=== PATIENT | female | born 1975 | race Caucasian/White ===

== ENCOUNTER 2017-08-24 13:19 | Emergency (ER) | payer BC ==
[2017-08-24 13:43] LABS: ABSOLUTE BASOPHILS # (AUTO) 0.1 10^3/uL (0.0-0.2); ABSOLUTE EOSINOPHILS # (AUTO) 0.1 10^3/uL (0.0-0.6); ABSOLUTE LYMPHOCYTES (AUTO) 2.3 10^3/uL (0.5-4.7); ABSOLUTE MONOCYTES (AUTO) 0.8 10^3/uL (0.1-1.4); ABSOLUTE NEUT (AUTO) 6.8 10^3/uL (1.7-8.2); BASOPHILS % (AUTO) 0.6 % (0-2); EOSINOPHILS % (AUTO) 0.9 % (0-6); HEMOGLOBIN 14.1 g/dL (12.0-15.5); MEAN CORPUSCULAR HEMOGLOBIN 30.6 pg (27.0-33.4); MEAN CORPUSCULAR HGB CONC 34.3 g/dL (32.0-36.0); MEAN CORPUSCULAR VOLUME 89 fl (80-97); MONOCYTES % (AUTO) 7.6 % (3-13); PLATELET COUNT 230 10^3/uL (150-450); RED BLOOD COUNT 4.59 10^6/uL (3.72-5.28); RED CELL DISTRIBUTION WIDTH 12.9 % (11.5-14.0); SEGMENTED NEUTROPHILS % (AUTO) 67.9 % (42-78); TOTAL CELLS COUNTED % (AUTO) 100 %
--- NOTE | 2017-08-24 13:46 | RADIOLOGY REPORT (SQ) ---
EXAM DESCRIPTION: CHEST SINGLE VIEW COMPLETED DATE/TIME: 08/24/2017 1:39 pm REASON FOR STUDY: bed 12 cp COMPARISON: None. EXAM PARAMETERS: NUMBER OF VIEWS: One view. TECHNIQUE: Single frontal radiographic view of the chest acquired. RADIATION DOSE: NA LIMITATIONS: None. FINDINGS: LUNGS AND PLEURA: No opacities, masses or pneumothorax. No pleural effusion. MEDIASTINUM AND HILAR STRUCTURES: No masses. Contour normal. HEART AND VASCULAR STRUCTURES: Heart normal in size. Normal vasculature. BONES: No acute findings. HARDWARE: None in the chest. OTHER: No other significant finding. IMPRESSION: NO ACUTE RADIOGRAPHIC FINDING IN THE CHEST. TECHNICAL DOCUMENTATION: JOB ID: [id number] [employer]- All Rights Reserved Reading location - IP/workstation name: [facility]-[email or web address]
[2017-08-24] MEDS ORDERED: NORMAL SALINE 1000 ML 1,000 ML IV ONE (14:01)
[2017-08-24] MEDS ORDERED: KETOROLAC TROMETHAMINE INJ/PF 30 MG/1 ML SDV IV ONE ×2 (14:08→15:35)
--- NOTE | 2017-08-24 14:10 | ER Document Report ---
ED General - General Mode of Arrival: Medic Information source: Patient TRAVEL OUTSIDE OF THE [place] IN LAST 30 DAYS: No <DEJUAN BAUGH - Last Filed: 08/24/17 14:20> <FABIOLA VERONICA - Last Filed: 08/24/17 17:10> - General Chief Complaint: Chest Pain Stated Complaint: CHEST PAIN Time Seen by Provider: 08/24/17 13:50 Notes: Patient is a 42 year old female presenting to the emergency department complaining of multiple symptoms including chest pain, shortness of breath, numbness on the right side of the jaw and dizziness onset around 1130 today. 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 She states she went inside and began to have chest pressure which she describes as cinder blocks sitting on her chest. While in the EMS patient states her chest pressure radiated into her back between her shoulder blades. Patient also mentions over the last week she has been having indigestion in the middle of the night. She states she has taken Tums but it does not help her symptoms further stating the indigestion goes away on its own. EMS gave the patient 1 Nitro, which the patient states helped alleviate some of her chest pressure. Patient states she has been taking Phentermine for 4 days now and states her indigestion has started before then. (DEJUAN BAUGH) - Related Data Allergies/Adverse Reactions: naproxen [Naproxen] Allergy (Verified 08/14/15 10:42) Rash Penicillins Adverse Reaction (Verified 08/14/15 10:42) yeast infections Past Medical History - General Information source: Patient - Social History Smoking Status: Never Smoker Cigarette use (# per day): No Chew tobacco use (# tins/day): No Smoking Education Provided: No Frequency of alcohol use: None Family History: CAD, Other - [place]- father at 62 y.o. Neurological Medical History: Reports: Hx Migraine Past Surgical History: Reports: Hx Section, Hx Gynecologic Surgery - Ovarian Cysts, Endometrosis, Hx Tubal Ligation - Immunizations Hx Diphtheria, Pertussis, Tetanus Vaccination: Yes <DEJUAN BAUGH - Last Filed: 08/24/17 14:20> Review of Systems - Review of Systems Constitutional: See HPI, Weakness EENT: No symptoms reported Cardiovascular: See HPI, Chest pain, Lightheaded Respiratory: See HPI, Short of breath Gastrointestinal: See HPI Genitourinary: No symptoms reported Female Genitourinary: No symptoms reported Musculoskeletal: See HPI Skin: No symptoms reported Hematologic/Lymphatic: No symptoms reported Neurological/Psychological: No symptoms reported -: Yes All other systems reviewed and negative <DEJUAN BAUGH - Last Filed: 08/24/17 14:20> Physical Exam - General General appearance: Appears well, Alert In distress: None - HEENT Head: Normocephalic, Atraumatic Eyes: Normal Conjunctiva: Normal Extraocular movements intact: Yes Pupils: PERRL Mucous membranes: Normal Neck: Normal - Respiratory Respiratory status: No respiratory distress Chest status: Tender - Reproduicble tenderness to palpation to the anterior chest wall, more so on the left. Also tender to palpation to the sternum. Breath sounds: Normal Chest palpation: Normal - Cardiovascular Rhythm: Regular Heart sounds: Normal auscultation Murmur: No Friction rub: No Gallop: None auscultated - Abdominal Inspection: Normal, Obese Distension: No distension Bowel sounds: Normal Tenderness: Nontender Organomegaly: No organomegaly - Back Back: Tender - tender to palpation to the medial scapula bilatearlly. - Extremities General upper extremity: Normal ROM General lower extremity: Normal ROM - Neurological Neuro grossly intact: Yes Cognition: Normal Orientation: AAOx4 [place] Coma Scale Eye Opening: Spontaneous [place] Coma Scale Verbal: Oriented [place] Coma Scale Motor: Obeys Commands [place] Coma Scale Total: 15 Speech: Normal - Psychological Associated symptoms: Normal affect, Normal mood - Skin Skin Temperature: Warm Skin Moisture: Dry Skin Color: Normal <DEJUAN BAUGH - Last Filed: 08/24/17 14:20> - Vital signs Vitals: Pulse Ox 100 08/24/17 13:22 Course - Laboratory Result Diagrams: 08/24/17 12:35 <DEJUAN BAUGH - Last Filed: 08/24/17 14:20> - Laboratory Result Diagrams: 08/24/17 12:35 08/24/17 12:35 <FABIOLA VEORNICA - Last Filed: 08/24/17 17:10> - Re-evaluation Re-evalutation: 08/24/17 16:46 The patient's EKG is totally normal and was done while she was having pain. Serial troponins are undetectable. She does have reproducible anterior chest and medial scapular muscular pain. She does have mild sunburn to her upper chest and upper half of her back and shoulders. She does have a family history of coronary artery disease, however she does not smoke and does not have hypertension. I do not think she needs to be admitted to the hospital this time, however I am recommending that she follow-up with her primary care provider tomorrow to further investigate her one-week history of waking up at night with indigestion symptoms. (FABIOLA VERONICA) - Vital Signs Vital signs: Temp Pulse Resp BP Pulse Ox 98.5 F 100 08/24/17 13:52 08/24/17 13:22 - Laboratory Laboratory results interpreted by me: 08/24/17 12:35 Carbon Dioxide 21 L Calcium 10.5 H Discharge <DEJUAN BAUGH - Last Filed: 08/24/17 14:20> <FABIOLA VERONICA - Last Filed: 08/24/17 17:10> - Discharge Clinical Impression: Anterior chest wall pain, Sunburn of first degree Muscle strain of scapular region Qualifiers: Encounter type: initial encounter Laterality: unspecified laterality Qualified Code(s): S46.919A - Strain of unspecified muscle, fascia and tendon at shoulder and upper arm level, unspecified arm, initial encounter Chest pain Qualifiers: Chest pain type: unspecified Qualified Code(s): R07.9 - Chest pain, unspecified Fatigue Qualifiers: Fatigue type: unspecified Qualified Code(s): R53.83 - Other fatigue Condition: Stable Disposition: HOME, SELF-CARE Additional Instructions: Chest Wall Pain: Your chest pain has been diagnosed as coming from the chest wall. This is often caused by straining the muscles or joints in the chest during physical activity, direct trauma, coughing, or vigorous vomiting. Persons with arthritis are especially prone to this type of pain, due to inflammation of the cartilage joints near the breast bone. Occasionally, no cause can be found. Rest from strenuous physical activity. This kind of chest pain is usually made worse by movement of the chest. Depending on the symptoms, we may recommend medicine for pain and antiinflammatory effects. If the pain is new, and seems to be due to muscle strain, cold packs can help. Otherwise, apply gentle warmth to the painful area for 15 minutes every hour or two. You should contact the doctor immediately if things change. Further evaluation is needed if you develop a fever or cough, if the nature of the pain changes, or if you become short of breath. The pain in your anterior chest and between her shoulder blades in the back appears to be coming from the muscles. This is most likely due to an overuse or straining of the muscles sometime in the past week or so. Your family history of coronary artery disease does cause some concern, so at this time I would recommend you stop taking the phentermine and follow-up with your primary care provider to discuss getting an exercise stress test done. Try to rest your chest and back muscles as much as possible over the next several days. Drink plenty of fluids to stay well hydrated. Follow-up with your primary care provider tomorrow for recheck. RETURN TO THE EMERGENCY ROOM IF ANY NEW OR WORSENING SYMPTOMS. Scribe Attestation: 08/24/17 14:49 I personally performed the services described in the documentation, reviewed and edited the documentation which was dictated to the scribe in my presence, and it accurately records my words and actions. (FABIOLA VERONICA) Scribe Documentation - Scribe Written by Robbin:: Robbin Sung, 08/24/2017 14:16 acting as scribe for :: [employer] <DEJUAN BAUGH - Last Filed: 08/24/17 14:20>
[2017-08-24 14:13] LABS: CREATINE KINASE MB 0.77 ng/mL (<4.55)
[2017-08-24 14:14] LABS: TROPONIN I < 0.012 ng/mL
[2017-08-24 15:13] LABS: ALANINE AMINOTRANSFERASE 29 U/L (9-52); ALBUMIN 4.4 g/dL (3.5-5.0); ALKALINE PHOSPHATASE 96 U/L (38-126); ANION GAP 17 (5-19); ASPARTATE AMINO TRANSFERASE 21 U/L (14-36); BILIRUBIN,DIRECT 0.3 mg/dL (0.0-0.4); BILIRUBIN,TOTAL 0.5 mg/dL (0.2-1.3); BLOOD UREA NITROGEN 19 mg/dL (7-20); CALCIUM 10.5 mg/dL (8.4-10.2); CARBON DIOXIDE 21 mmol/L (22-30); CHLORIDE 103 mmol/L (98-107); CREATINE KINASE 130 U/L (30-135); GLUCOSE 107 mg/dL (75-110); POTASSIUM 3.8 mmol/L (3.6-5.0); SODIUM 140.8 mmol/L (137-145); TOTAL PROTEIN 7.3 g/dL (6.3-8.2)
[2017-08-24] MEDS ORDERED: FENTANYL CITRATE INJ/PF 100 MCG/2 ML AMPUL IV ONE (15:35)
[2017-08-24] MEDS ORDERED: RINGERS SOLUTION,LACTATED 1,000 ML IV ONE (15:39)
[2017-08-24 17:27] VITALS: BP 120/79
--- NOTE | 2017-08-24 18:27 | EKG REPORT ---
SEVERITY:- NORMAL ECG - SINUS RHYTHM : Confirmed by: Nima Astorga MD 24-Aug-2017 18:26:55
== END 2017-08-24 17:28 | disposition home or self-care (01) ==
LOC: ER 13:19
DX: S46.919A Strain of unspecified muscle, fascia and tendon at shoulder and upper arm level, unspecified arm, initial encounter (principal); R07.89 Other chest pain; L55.0 Sunburn of first degree; R07.9 Chest pain, unspecified; R53.83 Other fatigue; R06.02 Shortness of breath; R20.0 Anesthesia of skin; R42 Dizziness and giddiness; R53.1 Weakness; X58.XXXA Exposure to other specified factors, initial encounter; Z79.899 Other long term (current) drug therapy
CPT/HCPCS: 93005; 99285; 96361; 96374; 36415; 82553; 82550; 85025; 80053; 84484; 71045; 93010; J1885; J7030; J7120

== ENCOUNTER → 2018-08-18 | Outpatient (CLI) | payer BC ==
--- NOTE | 2018-08-18 13:25 | XCELERA REPORT ---
[address] [place] [facility] [place] [address] Lower Extremity Venous Evaluation Procedure: Color flow and duplex imaging of the veins of the left lower extremity as well as the right Common Femoral vein. Right Sided Venous Evaluation The right common femoral vein is fully compressible. Spontaneous and phasic flow is present in the right common femoral vein. Left Sided Venous Evaluation Normal vessel filling wall to wall, compression and augmentation as well as Colour flow down to the infrageniculate veins. Interpretation Summary No duplex evidence of DVT or obstruction in the left lower extremity nor in the right Common Femoral vein. Name: SHWETA BARKERYURI Blackburn Age: 43 yrs Gender: Female : 1975 Patient Status: Outpatient Patient Location: Study Date: 08/18/2018 09:36 AM Reason For Study: LLE SWELLING Ordering Physician: PRESLEY ORELLANA Performed By: Fredi Briggs : PRESLEY ORELLANA > Sam Walker
== END ==
LOC: SP 08:56
PROVIDERS: ATTEND Nurse Practitioner Family
DX: M79.89 Other specified soft tissue disorders (principal)
CPT/HCPCS: 93971

== ENCOUNTER → 2018-08-18 | Outpatient (CLI) | payer BC ==
--- NOTE | 2018-08-18 12:48 | WOMENS IMAGING REPORT ---
EXAM DESCRIPTION: BILAT SCREENING MAMMO W/CAD COMPLETED DATE/TIME: 08/18/2018 10:29 am REASON FOR STUDY: Z12.31 ROUTINE BILATERAL SCREENING Z12.31 ENCNTR SCREEN MAMMOGRAM FOR MALIGNANT N EOPLASM OF LV COMPARISON: None. EXAM PARAMETERS: Standard craniocaudal and mediolateral oblique views of each breast recorded using digital acquisition. Read with the assistance of CAD. .[employer] Version 9.2 LIMITATIONS: None. FINDINGS: No suspicious masses, suspicious calcifications or architectural distortion. No areas of s uspicion. IMPRESSION: ASSESSMENT: Negative MAMMOGRAM. BIRADS 1 BREAST DENSITY: c. The breasts are heterogeneously dense, which may obscure small masses. BIRAD: 1 NEGATIVE RECOMMENDATION: ROUTINE SCREENING COMMENT: The patient has been notified of the results by letter per MQSA requirements. Additional no tification policies are in place for contacting patient with suspicious or incomplete findings. Quality ID #[id number]: The [employer] recommends an annual screening mammogram for women aged 40 years or over. This facility utilizes a reminder system to ensure that all patients receive reminder letters, and/or direct phone calls for appointments. This includes reminders for routine scr eening mammograms, diagnostic mammograms, or other Breast Imaging Interventions when appropriate. Th is patient will be placed in the appropriate reminder system. TECHNICAL DOCUMENTATION: FINDING NUMBER: (1) ASSESSMENT: (1) JOB ID: [id number] [employer]- All Rights Reserved Reading location - IP/workstation name: [email or web address]
== END ==
LOC: WI 10:00
PROVIDERS: ATTEND Nurse Practitioner Family
DX: Z12.31 Encounter for screening mammogram for malignant neoplasm of breast (principal)
CPT/HCPCS: 77067